=== PATIENT | male | born 1935 | race Caucasian/White ===

== ENCOUNTER 2020-10-13 09:11 | Inpatient (IN) | payer BC ==
[~2020-10-13] VITALS: Ht 172.7 cm; Wt 97.9 kg
[2020-10-13] VITALS (7 sets, daily range): BP systolic 108–121; BP diastolic 44–89
[~2020-10-13 09:11] MED LIST: AMLO-496 PO; ASPI1TAB20 PO; FINA5TAB4 PO; GLIM-5 PO; HYDR25TA4 PO; LOSA25TA38 PO; LOVA20TA4 PO; METF-370 PO; TAMS0.4C36 PO
[2020-10-13] MEDS ORDERED: TETRACAINE 1% INJ 2 ML VIAL IJ ONE (10:53)
[2020-10-13] MEDS ORDERED: KETOROLAC TROMETH 30 MG/ML 1ML VIAL ONE (10:55)
[2020-10-13] MEDS ORDERED: PROPOFOL 10 MG/ML 20 ML IV ONE (11:06)
[2020-10-13] MEDS ORDERED: ONDANSETRON HCL 4 MG/2 ML VIAL ONE (11:06)
[2020-10-13] MEDS ORDERED: MORPHINE SULF PF 2 MG/2 ML SYRG ONE (11:06)
[2020-10-13] MEDS ORDERED: SODIUM CHLORIDE LOCK 10 ML ONE (11:06)
[2020-10-13] MEDS ORDERED: fentaNYL CITRATE 100 MCG/2 ML VL ONE (11:06)
[2020-10-13] MEDS ORDERED: MIDAZOLAM HCL 2MG/2ML 2ml VIAL (1mg/ml) ONE (11:06)
[2020-10-13] MEDS ORDERED: TRANEXAMIC ACID 10 ML ONE (12:11)
[2020-10-13] MEDS ORDERED: VANCOMYCIN HCL 1000 MG VL ONE (12:11)
[2020-10-13] MEDS ORDERED: PREGABALIN CAPSULE 75 MG CAP ONE (12:13)
[2020-10-13] MEDS ORDERED: ceFAZolin 1GM/50ML 100 ML IV ONE (12:14)
[2020-10-13] MEDS ORDERED: ACETAMINOPHEN IV 100 ML IV ONE (12:14)
[2020-10-13] MEDS ORDERED: MORPHINE SULFATE INJECTION 2 MG/ML SYRG IV PRN (14:30)
[2020-10-13] MEDS ORDERED: NITROGLYCERIN 0.4 MG SL TAB SL PRN (14:30)
[2020-10-13] MEDS ORDERED: ACETAMINOPHEN 325 MG TAB PO PRN (14:30)
[2020-10-13] MEDS ORDERED: DEXTROSE (50%) 50ML SYRG IV PRN (14:30)
[2020-10-13] MEDS ORDERED: ONDANSETRON HCL 4 MG/2 ML VIAL IV PRN (14:30)
[2020-10-13] MEDS: LACTATED RINGER'S 1,000 ML IV SCH (14:30)
[2020-10-13] MEDS ORDERED: HYDROmorphone HCL 2 MG/ML VL IV PRN ×2 (14:30→14:45)
[2020-10-13] MEDS ORDERED: MORPHINE SULFATE 4 MG/ML SYR/VIAL IV PRN (14:45)
[2020-10-13] MEDS ORDERED: diphenhdrAMINE HCL 50 MG/1 ML VL IV PRN (14:45)
[2020-10-13] MEDS ORDERED: ACCU-CHEK COMFORT CURVE STRIP VI ONE (14:45)
[2020-10-13] MEDS ORDERED: METOCLOPRAMIDE HCL 5MG/ml INJ 2ml VIAL IV PRN (14:45)
[2020-10-13] MEDS ORDERED: NALOXONE HCL 0.4 MG/ML VIAL IV PRN (14:45)
[2020-10-13] MEDS: ceFAZolin 1GM/50ML 50 ML IV SCH ×2 (15:06→20:18)
[2020-10-13] MEDS: InsuLIN REG 1unit/0.01ml Soln (100units/ml) SC SCH ×2 (17:00→22:53)
[2020-10-13] MEDS ORDERED: ACCU-CHEK COMFORT CURVE STRIP VI SCH (17:00)
[2020-10-13] MEDS ORDERED: KETOROLAC TROMETH 30 MG/ML 1ML VIAL IV PRN (18:00)
[2020-10-13] MEDS: ACCU-CHEK COMFORT CURVE STRIP VI SCH ×2 (18:25→22:51)
[2020-10-13] MEDS: PRAVASTATIN SODIUM 20 MG TAB PO SCH (22:47)
[2020-10-13] MEDS: DOCUSATE SOD 100 MG CAP PO SCH (22:47)
[2020-10-13] MEDS: SODIUM CHLOR 0.9% PF (SALINE LOCK) 10ML VIAL/SYR IV SCH (22:47)
[2020-10-14] VITALS (23 sets, daily range): BP systolic 120–157; BP diastolic 51–73
[2020-10-14] MEDS: ceFAZolin 1GM/50ML 50 ML IV SCH (03:02)
[2020-10-14] MEDS: LACTATED RINGER'S 1,000 ML IV SCH ×3 (03:03→20:30)
[2020-10-14 06:09] LABS: Hematocrit 36.5 % (41.0-53.0); Hemoglobin 13.2 g/dL (13.5-17.5)
[2020-10-14] MEDS: ACCU-CHEK COMFORT CURVE STRIP VI SCH ×4 (06:15→21:19)
[2020-10-14] MEDS: SODIUM CHLOR 0.9% PF (SALINE LOCK) 10ML VIAL/SYR IV SCH ×3 (06:15→21:26)
[2020-10-14] MEDS: InsuLIN REG 1unit/0.01ml Soln (100units/ml) SC SCH ×4 (06:17→21:25)
[2020-10-14 06:36] LABS: Albumin 3.6 g/dL (3.4-5.0); Calcium 8.5 mg/dL (8.5-10.1); Potassium 3.7 mmol/L (3.5-5.1)
[2020-10-14 06:42] LABS: BUN/Creatinine Ratio 21.9; Bilirubin, Total 0.6 mg/dL (0.2-1.0); Total Protein 6.9 g/dL (6.4-8.2)
[2020-10-14] MEDS ORDERED: metFORMIN HYDROCHLORIDE 500 MG TAB PO SCH (08:00)
[2020-10-14] MEDS: DOCUSATE SOD 100 MG CAP PO SCH ×2 (09:26→21:25)
[2020-10-14] MEDS: LOSARTAN POTASSIUM 25 MG TAB PO SCH (09:27)
[2020-10-14] MEDS: TAMSULOSIN HYDROCHLORIDE 0.4 MG CAP PO SCH (09:27)
[2020-10-14] MEDS: HCTZ 25 MG TAB PO SCH (09:28)
[2020-10-14] MEDS: amLODIPine BESYLATE 5 MG TAB PO SCH (09:29)
[2020-10-14] MEDS: ENOXAPARIN SOD 40 MG/0.4 ML SYRINGE SC SCH (09:29)
[2020-10-14] MEDS ORDERED: FINA5TAB4 PO (09:53)
[2020-10-14] MEDS ORDERED: PATIENTS OWN MEDICATION (Amlodipine Besylate 10 MG) PO SCH (10:00)
[2020-10-14] MEDS ORDERED: Glimepiride 1 MG TAB PO SCH (10:00)
[2020-10-14] MEDS ORDERED: FINASTERIDE 1 MG PO SCH (10:00)
[2020-10-14] MEDS: FINASTERIDE 5 MG TAB PO SCH (10:39)
[2020-10-14] MEDS: GLIMEPIRIDE 2 MG TAB PO SCH (13:15)
[2020-10-14] MEDS: OXYCODONE W/ ACETAMINOPHEN 5/325MG TABLET PO PRN ×3 (17:00→21:27)
[2020-10-14] MEDS ORDERED: MELA3TAB27 PO (20:13)
[2020-10-14] MEDS: PRAVASTATIN SODIUM 20 MG TAB PO SCH (21:26)
[2020-10-15 05:00] VITALS: BP 158/69
[2020-10-15] MEDS: SODIUM CHLOR 0.9% PF (SALINE LOCK) 10ML VIAL/SYR IV SCH ×3 (05:22→21:01)
[2020-10-15 05:51] LABS: Basophils # (auto) 0.1 10 ^3/uL (0-0.2); Basophils % (auto) 0.5 % (0.0-2.0); Eosinophils # (auto) 0 10 ^3/uL (0-0.8); Eosinophils % (auto) 0.3 % (0.0-7.0); Hematocrit 36.8 % (41.0-53.0); Hemoglobin 13.1 g/dL (13.5-17.5); Lymphocytes # (auto) 0.8 10 ^3/uL (0.4-5.4); Mean Corpuscular Hemoglobin 31.6 pg (28.0-32.0); Mean Corpuscular Hgb Conc. 35.5 g/dL (32.0-36.0); Monocytes # (auto) 1.2 10 ^3/uL (0-1.3); Monocytes % (auto) 10.9 % (0.0-12.0); Neutrophils # (auto) 9.3 10 ^3/uL (1.6-8.6); Neutrophils % (auto) 81.3 % (37.0-80.0); Red Blood Cells 4.13 10^6/uL (4.5-5.90); Red Cell Distribution Width 13.2 % (11.8-14.3); White Blood Cell 11.4 10^3/uL (4.4-10.8)
[2020-10-15] MEDS: LACTATED RINGER'S 1,000 ML IV SCH ×2 (06:05→16:30)
[2020-10-15] MEDS: InsuLIN REG 1unit/0.01ml Soln (100units/ml) SC SCH ×4 (06:06→21:22)
[2020-10-15] MEDS: ACCU-CHEK COMFORT CURVE STRIP VI SCH ×4 (06:06→21:22)
[2020-10-15 06:14] LABS: Potassium 3.1 mmol/L (3.5-5.1)
[2020-10-15 06:18] LABS: BUN/Creatinine Ratio 18.2; Calcium 8.7 mg/dL (8.5-10.1); Magnesium 1.6 mg/dL (1.6-2.6)
[2020-10-15 09:00] VITALS: BP 149/97
[2020-10-15] MEDS: OXYCODONE W/ ACETAMINOPHEN 5/325MG TABLET PO PRN ×3 (09:10→23:17)
[2020-10-15] MEDS: GLIMEPIRIDE 2 MG TAB PO SCH (10:09)
[2020-10-15] MEDS: LOSARTAN POTASSIUM 25 MG TAB PO SCH (10:10)
[2020-10-15] MEDS: DOCUSATE SOD 100 MG CAP PO SCH ×2 (10:10→21:01)
[2020-10-15] MEDS: TAMSULOSIN HYDROCHLORIDE 0.4 MG CAP PO SCH (10:10)
[2020-10-15] MEDS: HCTZ 25 MG TAB PO SCH (10:11)
[2020-10-15] MEDS: amLODIPine BESYLATE 5 MG TAB PO SCH (10:12)
[2020-10-15] MEDS: ENOXAPARIN SOD 40 MG/0.4 ML SYRINGE SC SCH (10:12)
[2020-10-15] MEDS: FINASTERIDE 5 MG TAB PO SCH (10:12)
[2020-10-15] MEDS ORDERED: POTASSIUM CHL 20 Meq TABLET PO ONE (12:15)
[2020-10-15 13:00] VITALS: BP 143/53
[2020-10-15 17:00] VITALS: BP 149/79
[2020-10-15] MEDS: PRAVASTATIN SODIUM 20 MG TAB PO SCH (21:01)
[2020-10-15 22:00] VITALS: BP 146/67
[2020-10-16] MEDS: LACTATED RINGER'S 1,000 ML IV SCH ×2 (02:30→12:30)
[2020-10-16 05:00] VITALS: BP 146/63
[2020-10-16] MEDS: SODIUM CHLOR 0.9% PF (SALINE LOCK) 10ML VIAL/SYR IV SCH ×2 (05:37→14:02)
[2020-10-16] MEDS: ACCU-CHEK COMFORT CURVE STRIP VI SCH ×3 (06:22→17:00)
[2020-10-16] MEDS: InsuLIN REG 1unit/0.01ml Soln (100units/ml) SC SCH ×3 (06:23→17:00)
[2020-10-16 07:40] LABS: Hematocrit 38.3 % (41.0-53.0); Hemoglobin 13.8 g/dL (13.5-17.5)
[2020-10-16] MEDS: TAMSULOSIN HYDROCHLORIDE 0.4 MG CAP PO SCH (08:59)
[2020-10-16 09:00] VITALS: BP 155/64
[2020-10-16] MEDS: OXYCODONE W/ ACETAMINOPHEN 5/325MG TABLET PO PRN (09:00)
[2020-10-16] MEDS: amLODIPine BESYLATE 5 MG TAB PO SCH (09:00)
[2020-10-16] MEDS: DOCUSATE SOD 100 MG CAP PO SCH (09:01)
[2020-10-16] MEDS: HCTZ 25 MG TAB PO SCH (09:01)
[2020-10-16] MEDS: GLIMEPIRIDE 2 MG TAB PO SCH (09:02)
[2020-10-16] MEDS: ENOXAPARIN SOD 40 MG/0.4 ML SYRINGE SC SCH (09:03)
[2020-10-16] MEDS: FINASTERIDE 5 MG TAB PO SCH (09:04)
[2020-10-16] MEDS: LOSARTAN POTASSIUM 25 MG TAB PO SCH (09:04)
[2020-10-16 11:34] LABS: BUN/Creatinine Ratio 15.2; Calcium 9.2 mg/dL (8.5-10.1); Potassium 3.4 mmol/L (3.5-5.1)
[2020-10-16 13:00] VITALS: BP 117/55
[2020-10-16 13:18] VITALS: BP 155/64
== END 2020-10-16 18:17 | disposition home health service (06) | DRG 469 ==
LOC: SUR 09:11 → TELE 14:24 → TELE-WESTW 17:45
PROVIDERS: ADMIT Orthopaedic Surgery Adult Reconstructive Orthopaedic Surgery; ATTEND Orthopaedic Surgery
PROC: 8E0YXBZ Computer Assisted Procedure of Lower Extremity (ICD-10-PCS; 2020-10-13)
PROC: 0SRC069 Replacement of Right Knee Joint with Oxidized Zirconium on Polyethylene Synthetic Substitute, Cemented, Open Approach (ICD-10-PCS; principal; 2020-10-13 12:36)
DX: M17.11 Unilateral primary osteoarthritis, right knee (principal); G93.41 Metabolic encephalopathy; N17.0 Acute kidney failure with tubular necrosis; E78.5 Hyperlipidemia, unspecified; I10 Essential (primary) hypertension; N40.0 Benign prostatic hyperplasia without lower urinary tract symptoms; E11.9 Type 2 diabetes mellitus without complications; Z20.822 Contact with and (suspected) exposure to COVID-19
CPT/HCPCS: 36415; 70450; 72131; 72192; 73562; 73700; 80048; 80053; 82962; 83735; 85014; 85018; 85025; 86850; 86900; 86901; 97110; 97116; 97530; C1713; G0378; J0131; J0690; J1815; J1885; J2250; J2405; J2704

== ENCOUNTER 2020-10-19 06:34 | Emergency (ER) | payer BC ==
[~2020-10-19] VITALS: Ht 172.7 cm; Wt 99.8 kg
[~2020-10-19 06:34] MED LIST changes: -ASPI1TAB20 PO; +MELA3TAB27 PO
[2020-10-19] MEDS ORDERED: DOCUSATE SOD 100 MG CAP PO ONE (08:45)
[2020-10-19 08:55] LABS: Basophils # (auto) 0.1 10 ^3/uL (0-0.2); Basophils % (auto) 0.9 % (0.0-2.0); Eosinophils # (auto) 0.3 10 ^3/uL (0-0.8); Eosinophils % (auto) 3.9 % (0.0-7.0); Hematocrit 38.4 % (41.0-53.0); Hemoglobin 13.6 g/dL (13.5-17.5); Lymphocytes % (auto) 12.3 % (10.0-50.0); Mean Corpuscular Hemoglobin 31.4 pg (28.0-32.0); Mean Corpuscular Hgb Conc. 35.4 g/dL (32.0-36.0); Mean Corpuscular Volume 88.7 fL (80.0-100.0); Monocytes # (auto) 1.1 10 ^3/uL (0-1.3); Monocytes % (auto) 13.9 % (0.0-12.0); Neutrophils # (auto) 5.6 10 ^3/uL (1.6-8.6); Platelet Count (auto) 315 10^3/uL (140-450); Red Blood Cells 4.32 10^6/uL (4.5-5.90)
[2020-10-19 08:57] LABS: Urine Bacteria FEW /hpf (None Seen); Urine Blood Negative /uL (Negative); Urine Specific Gravity 1.016 (1.001-1.035); Urine WBC 2 /hpf (0 - 3)
[2020-10-19 09:12] LABS: Albumin 3.3 g/dL (3.4-5.0); Calcium 9.2 mg/dL (8.5-10.1); Potassium 3.5 mmol/L (3.5-5.1)
[2020-10-19 09:13] LABS: BUN/Creatinine Ratio 26.9
[2020-10-19 09:16] LABS: Total Protein 8.2 g/dL (6.4-8.2)
[2020-10-19 10:53] VITALS: BP 130/62
== END 2020-10-19 11:15 | disposition home or self-care (01) ==
LOC: ER 06:34
DX: K59.00 Constipation, unspecified (principal); R33.9 Retention of urine, unspecified; E11.9 Type 2 diabetes mellitus without complications; I10 Essential (primary) hypertension; Z96.651 Presence of right artificial knee joint; Z88.2 Allergy status to sulfonamides; Z79.84 Long term (current) use of oral hypoglycemic drugs; Z79.899 Other long term (current) drug therapy
CPT/HCPCS: 36415; 51702; 74176; 80053; 81001; 85025; 85049